=== PATIENT | female | born 1985 | race Caucasian/White ===

== ENCOUNTER 2018-02-24 13:18 | Emergency (ER) | payer OTHER ==
[~2018-02-24] VITALS: Ht 165.1 cm; Wt 94.3 kg
[~2018-02-24 13:18] MED LIST: ALEVE220 M1; FLEXERIL PO; KEFLEX500 MG PO; NORCO 5-325 TA1 EACH PO; SUPRAX400 MG PO; TORADOL 10 MG T10 MG PO; ULTRAM 50MG TAB50 MG PO
[2018-02-24] MEDS ORDERED: NEURONTIN600 MG PO (13:27)
[2018-02-24] MEDS ORDERED: MOBIC15 MG PO (13:28)
[2018-02-24 13:53] LABS: URINE BILIRUBIN NEGATIVE (Negative); URINE BLOOD 2+ (Negative); URINE CLARITY CLEAR; URINE COLOR YELLOW; URINE GLUCOSE-RANDOM* NEGATIVE (Negative); URINE KETONES NEGATIVE (Negative); URINE LEUKOCYTES 1+ (Negative); URINE NITRITE NEGATIVE (Negative); URINE PROTEIN (DIPSTICK) NEGATIVE (Negative); URINE UROBILINOGEN 0.2 E.U./dl (0.2-1.0)
[2018-02-24 14:00] LABS: SQUAMOUS 0-3 Few /LPF (0-3)
[2018-02-24 14:01] LABS: BACTERIA 1-9 Few /HPF (None Seen); CASTS None Seen /LPF (None Seen); CRYSTALS None Seen /LPF (None Seen); URINE RBC None Seen /HPF (0-2); URINE WBC 6-15 Few /HPF (0-5)
[2018-02-24 15:08] LABS: BASOPHILS 0.5 % (0.0-2.0); EOSINOPHILS 0.9 % (0.0-3.0); HEMATOCRIT 40.9 % (37.0-47.0); LYMPHOCYTES 34.1 % (24.0-44.0); MCH 29.7 pg (26.0-34.0); MCHC 34.2 g/dL (28.0-37.0); MCV 86.7 fL (80.0-100.0); MONOCYTES 5.4 % (1.0-8.0); PLATELET COUNT 227 thou/uL (150-400); POLYS 59.1 % (36.0-66.0); RBC 4.72 mil/uL (4.20-5.00); RDW 11.8 % (10.5-14.5); WBC 8.4 thou/uL (4.0-11.0)
[2018-02-24 15:11] LABS: ANION GAP 7 mmol/L (7-16); BUN 13 mg/dL (7-18); CHLORIDE 105 mmol/L (98-107); CO2 27 mmol/L (21-32); GLUCOSE 82 mg/dL (74-106); SODIUM 139 mmol/L (136-145)
[2018-02-24] MEDS ORDERED: MACROBID 100 M100 M1 PO (15:15)
[2018-02-24] MEDS ORDERED: ZOFRAN ODT4 MG PO (15:15)
[2018-02-24 15:18] LABS: DIRECT BILIRUBIN < 0.1 mg/dL (<0.1-0.3); SGOT 21 U/L (15-37); SGPT 39 U/L (30-65); TOTAL BILIRUBIN 0.3 mg/dL (<0.1-1.0); TOTAL PROTEIN 7.6 g/dL (6.4-8.2)
[2018-02-24 16:26] VITALS: BP 117/82
== END 2018-02-24 19:30 | disposition home or self-care (01) ==
LOC: ER 13:18
PROVIDERS: Emergency Medicine
DX: N39.0 Urinary tract infection, site not specified (principal); R19.7 Diarrhea, unspecified; Z88.6 Allergy status to analgesic agent